=== PATIENT | female | born 1930 | race Two or more races ===

== ENCOUNTER 2017-08-14 13:11 | Outpatient (CLI) | payer OTHER ==
[~2017-08-14 13:11] MED LIST: BENTYL10 MG/ML; CLONAZEPAM0.5 MG; Clonazepam PO; DICY10CA; INTESTINEX1 CA1 PO; PAXIL20 MG; PROTONIX40 MG PO
== END 2017-08-14 13:14 | disposition home or self-care (01) ==
LOC: SONOGRAMA 13:11
DX: M25.511 Pain in right shoulder (principal)

== ENCOUNTER 2017-08-14 13:16 | Outpatient (CLI) | payer OTHER | END 2017-08-14 13:26 | disposition home or self-care (01) | LOC: RAD 13:16 | DX: M25.511 Pain in right shoulder (principal) ==

== ENCOUNTER 2017-09-10 11:42 | Outpatient (CLI) | payer OTHER | END 2017-09-10 17:33 | disposition home or self-care (01) | LOC: NUCLEAR 11:42 | DX: M81.0 Age-related osteoporosis without current pathological fracture (principal); M85.9 Disorder of bone density and structure, unspecified; I49.8 Other specified cardiac arrhythmias ==

== ENCOUNTER 2017-09-10 12:50 | Outpatient (CLI) | payer OTHER | END 2017-09-10 12:53 | disposition home or self-care (01) | LOC: RAD 12:50 | DX: Z76.89 Persons encountering health services in other specified circumstances (principal) ==

== ENCOUNTER 2017-10-02 12:42 | Outpatient (CLI) | payer OTHER ==
[2017-10-06] MEDS ORDERED: INTESTINEX680 M1 PO (08:26)
[2017-10-06] MEDS ORDERED: PROBIOTIC PO (08:26)
== END 2017-10-02 13:59 | disposition home or self-care (01) ==
LOC: LAB 12:42
DX: N39.0 Urinary tract infection, site not specified (principal); A49.02 Methicillin resistant Staphylococcus aureus infection, unspecified site; D68.8 Other specified coagulation defects

== ENCOUNTER 2017-10-06 09:11 | Day surgery (SDC) | payer OTHER ==
[~2017-10-06 09:11] MED LIST changes: +INTESTINEX680 M1 PO; +PROBIOTIC PO
== END 2017-10-06 18:30 | disposition home or self-care (01) ==
LOC: CIR.AMB 09:11
DX: M75.121 Complete rotator cuff tear or rupture of right shoulder, not specified as traumatic (principal); M19.011 Primary osteoarthritis, right shoulder; M25.311 Other instability, right shoulder; M75.21 Bicipital tendinitis, right shoulder; M24.411 Recurrent dislocation, right shoulder